=== PATIENT | male | born 1965 | race African-American/Black ===

== ENCOUNTER 2016-11-18 17:57 | Emergency (ER) | payer MEDICAID ==
[~2016-11-18] VITALS: Ht 175.3 cm; Wt 95.3 kg
[~2016-11-18 17:57] MED LIST: MAGN400T23 PO; METO25TA5 PO; MIRT15TA PO; NAP500T PO; NOR5T PO; OMEP20CA5 PO
[2016-11-18 19:16] LABS: Basophils # (auto) 0.1 uL; Basophils % (auto) 0.7 % (0.0-2.0); DEFINITIVE VIEW TRANSMISSION; Eosinophils # (auto) 0.8 uL; Eosinophils % (auto) 9.4 % (0.0-7.0); Hematocrit 38.1 % (41.0-53.0); Hemoglobin 11.9 g/dL (13.5-17.5); Lymphocytes # (auto) 2.8 uL; Lymphocytes % (auto) 32.7 % (10.0-50.0); Mean Corpuscular Hemoglobin 20.7 pg (28.0-32.0); Mean Corpuscular Hgb Conc. 31.3 g/dL (32.0-36.0); Mean Corpuscular Volume 66.1 fL (80.0-100.0); Mean Platelet Volume 8.4 fL (7.4-10.4); Monocytes # (auto) 0.5 uL; Monocytes % (auto) 6.3 % (0.0-12.0); Neutrophils # (auto) 4.3 uL; Neutrophils % (auto) 50.9 % (37.0-80.0); Platelet Count (auto) 207 10^3/uL (140-450); Red Cell Distribution Width 17.9 % (11.6-16.0); White Blood Cell 8.4 10^3/uL (4.4-10.8)
[2016-11-18 19:19] LABS: Albumin 3.9 g/dL (3.4-5.0); BUN/Creatinine Ratio 13.7; Calcium 8.5 mg/dL (8.5-10.1); Magnesium 2.3 mg/dL (1.6-2.6); Potassium 3.6 mmol/L (3.5-5.1)
[2016-11-18 19:22] LABS: Bilirubin, Total 1.6 mg/dL (0.2-1.0); Total Protein 7.5 g/dL (6.4-8.2)
[2016-11-18 20:12] LABS: Hypochromia Moderate; Platelet Estimate Adequate
[2016-11-18 20:13] LABS: Microcytosis Marked; Ovalocytes FEW; Tear Drop Cells FEW
[2016-11-19] MEDS ORDERED: LORazepam 2MG/ML-1ML VIAL IV ONE (00:30)
[2016-11-19 04:27] VITALS: BP 111/63
== END 2016-11-19 04:50 | disposition home or self-care (01) ==
LOC: EDUNIT# 17:57 → ER 18:01
DX: F41.9 Anxiety disorder, unspecified (principal); D64.9 Anemia, unspecified; I10 Essential (primary) hypertension; F12.10 Cannabis abuse, uncomplicated; Z88.0 Allergy status to penicillin; Z88.1 Allergy status to other antibiotic agents
CPT/HCPCS: 36415; 71010; 80053; 83735; 84484; 85025; 85049; 93005; 96374; 99285; J2060

== ENCOUNTER 2016-11-29 21:09 | Emergency (ER) | payer MEDICAID ==
[~2016-11-29] VITALS: Ht 172.7 cm; Wt 81.6 kg
[2016-11-30 05:18] VITALS: BP 121/70
[2016-11-30 05:27] LABS: Urine RBC None Seen /hpf (0 - 3)
[2016-11-30 05:35] LABS: Urine Bilirubin Negative (Negative); Urine Blood Negative /uL (Negative); Urine Color Yellow (Yellow); Urine Glucose Normal (Normal); Urine Ketone Negative (Negative); Urine Mucus FEW (None Seen); Urine Nitrite Negative (Negative); Urine Squamous Epithelial Cell FEW /hpf (<5); Urine Urobilinogen Normal (Negative); Urine pH 5.5 (5.0-8.0)
== END 2016-11-30 09:05 | disposition home or self-care (01) ==
LOC: EDBD 21:09 → ER 21:10
DX: J40 Bronchitis, not specified as acute or chronic (principal); F41.9 Anxiety disorder, unspecified; R07.89 Other chest pain; I10 Essential (primary) hypertension; F12.10 Cannabis abuse, uncomplicated; R10.9 Unspecified abdominal pain
CPT/HCPCS: 81001; 93005

== ENCOUNTER 2017-01-01 19:18 | Emergency (ER) | payer MEDICAID ==
[~2017-01-01] VITALS: Ht 175.3 cm; Wt 93.0 kg
[2017-01-01 20:44] LABS: Basophils # (auto) 0 uL; DEFINITIVE VIEW TRANSMISSION; Eosinophils # (auto) 0.6 uL; Eosinophils % (auto) 6.4 % (0.0-7.0); Hematocrit 36.3 % (41.0-53.0); Hemoglobin 11.6 g/dL (13.5-17.5); Lymphocytes # (auto) 2.9 uL; Mean Corpuscular Hemoglobin 21.1 pg (28.0-32.0); Mean Corpuscular Hgb Conc. 31.9 g/dL (32.0-36.0); Mean Platelet Volume 8.5 fL (7.4-10.4); Monocytes # (auto) 0.6 uL; Monocytes % (auto) 6.8 % (0.0-12.0); Neutrophils # (auto) 4.8 uL; Neutrophils % (auto) 53.8 % (37.0-80.0); Platelet Count (auto) 229 10^3/uL (140-450); Red Cell Distribution Width 17.9 % (11.6-16.0); White Blood Cell 8.9 10^3/uL (4.4-10.8)
[2017-01-01 20:51] LABS: Albumin 3.5 g/dL (3.4-5.0); Anion Gap 8 (5-15); Aspartate Aminotransferase 21 U/L (15-37); BUN/Creatinine Ratio 9.3; Blood Urea Nitrogen 11 mg/dL (7-18); Carbon Dioxide 26 mmol/L (21-32); Chloride 105 mmol/L (98-107); GFR African American 84 mL/min; GFR Non-African American 69 mL/min; Glucose 81 mg/dL (74-106); Magnesium 2.3 mg/dL (1.6-2.6); Potassium 3.5 mmol/L (3.5-5.1); Sodium 139 mmol/L (136-145)
[2017-01-01 20:55] LABS: Alkaline Phosphatase 53 U/L (45-117); Total Protein 7.1 g/dL (6.4-8.2)
[2017-01-01 23:54] LABS: Urine Bilirubin Negative (Negative); Urine Blood Negative /uL (Negative); Urine Color Yellow (Yellow); Urine Glucose Normal (Normal); Urine Ketone Negative (Negative); Urine Mucus FEW (None Seen); Urine Nitrite Negative (Negative); Urine RBC 2 /hpf (0 - 3); Urine pH 6.5 (5.0-8.0)
[2017-01-02 01:52] VITALS: BP 107/63
== END 2017-01-02 02:25 | disposition home or self-care (01) ==
LOC: EDUNIT# 19:18 → ER 19:26
DX: F41.9 Anxiety disorder, unspecified (principal); R07.9 Chest pain, unspecified; F12.10 Cannabis abuse, uncomplicated; R10.84 Generalized abdominal pain; I10 Essential (primary) hypertension; Z88.0 Allergy status to penicillin; Z88.1 Allergy status to other antibiotic agents; Z79.899 Other long term (current) drug therapy
CPT/HCPCS: 36415; 71020; 74176; 80053; 81001; 83735; 84484; 85025; 93005; 99285; G0434

== ENCOUNTER 2017-03-17 17:01 | Emergency (ER) | payer MEDICAID ==
[~2017-03-17] VITALS: Ht 175.3 cm; Wt 90.7 kg
[2017-03-17 17:12] VITALS: BP 119/75
[2017-03-17 17:40] LABS: Basophils # (auto) 0.1 uL; Basophils % (auto) 1.3 % (0.0-2.0); DEFINITIVE VIEW TRANSMISSION; Eosinophils # (auto) 0.2 uL; Eosinophils % (auto) 3.2 % (0.0-7.0); Hematocrit 36.5 % (41.0-53.0); Hemoglobin 11.6 g/dL (13.5-17.5); Lymphocytes # (auto) 2.5 uL; Lymphocytes % (auto) 35.5 % (10.0-50.0); Mean Corpuscular Hgb Conc. 31.8 g/dL (32.0-36.0); Mean Corpuscular Volume 66.1 fL (80.0-100.0); Mean Platelet Volume 8.2 fL (7.4-10.4); Monocytes # (auto) 0.5 uL; Monocytes % (auto) 7.2 % (0.0-12.0); Neutrophils # (auto) 3.7 uL; Neutrophils % (auto) 52.8 % (37.0-80.0); Platelet Count (auto) 227 10^3/uL (140-450); Red Cell Distribution Width 18.1 % (11.6-16.0)
[2017-03-17 18:09] LABS: Albumin 3.9 g/dL (3.4-5.0); Alkaline Phosphatase 55 U/L (45-117); Anion Gap 8 (5-15); Aspartate Aminotransferase 29 U/L (15-37); BUN/Creatinine Ratio 10.1; Bilirubin, Total 1.2 mg/dL (0.2-1.0); Blood Urea Nitrogen 12 mg/dL (7-18); Calcium 8.7 mg/dL (8.5-10.1); Carbon Dioxide 27 mmol/L (21-32); Chloride 104 mmol/L (98-107); GFR African American 83 mL/min; GFR Non-African American 69 mL/min; Glucose 97 mg/dL (74-106); Magnesium 2.3 mg/dL (1.6-2.6); Potassium 3.5 mmol/L (3.5-5.1); Sodium 139 mmol/L (136-145); Total Protein 7.4 g/dL (6.4-8.2)
== END 2017-03-17 20:22 | disposition left against medical advice (07) ==
LOC: ER 17:04
DX: R07.9 Chest pain, unspecified (principal); Z53.21 Procedure and treatment not carried out due to patient leaving prior to being seen by health care provider
CPT/HCPCS: 36415; 80053; 83735; 84484; 85025; 93005

== ENCOUNTER 2017-06-13 19:30 | Emergency (ER) | payer MEDICAID ==
[~2017-06-13] VITALS: Ht 175.3 cm; Wt 93.9 kg
[~2017-06-13 19:30] MED LIST changes: +HYDR-4663 PO; -NOR5T PO; -OMEP20CA5 PO; +OMEP20CA74 PO
[2017-06-13 19:43] VITALS: BP 134/78
[2017-06-13 20:09] LABS: Basophils # (auto) 0 uL; Basophils % (auto) 0.1 % (0.0-2.0); CONDITION Y; DEFINITIVE SEE PRINTOUT; Eosinophils # (auto) 0.5 uL; Eosinophils % (auto) 5.6 % (0.0-7.0); Lymphocytes % (auto) 35.6 % (10.0-50.0); Mean Corpuscular Hemoglobin 20.9 pg (28.0-32.0); Mean Corpuscular Hgb Conc. 31.6 g/dL (32.0-36.0); Mean Corpuscular Volume 66.2 fL (80.0-100.0); Mean Platelet Volume 8.6 fL (7.4-10.4); Monocytes # (auto) 0.5 uL; Monocytes % (auto) 6.4 % (0.0-12.0); Neutrophils # (auto) 4.4 uL; Neutrophils % (auto) 52.3 % (37.0-80.0); Platelet Count (auto) 227 10^3/uL (140-450); Red Cell Distribution Width 18.4 % (11.6-16.0); White Blood Cell 8.4 10^3/uL (4.4-10.8)
[2017-06-13 20:29] LABS: Albumin 3.8 g/dL (3.4-5.0); Anion Gap 8 (5-15); Blood Urea Nitrogen 12 mg/dL (7-18); Calcium 8.1 mg/dL (8.5-10.1); Carbon Dioxide 26 mmol/L (21-32); Chloride 107 mmol/L (98-107); Glucose 100 mg/dL (74-106); Potassium 3.6 mmol/L (3.5-5.1); Sodium 141 mmol/L (136-145)
[2017-06-13 20:31] LABS: Aspartate Aminotransferase 30 U/L (15-37); BUN/Creatinine Ratio 12.8; GFR African American 109 mL/min; GFR Non-African American 90 mL/min
[2017-06-13 20:36] LABS: Alkaline Phosphatase 55 U/L (45-117); Bilirubin, Total 0.8 mg/dL (0.2-1.0); INR 0.92 (0.9-1.15); Partial Thromboplastin Time 26.1 sec (22.64-33.71); Total Protein 7.3 g/dL (6.4-8.2)
[2017-06-13 21:04] LABS: B-Type Natriuretic Peptide 6.8 pg/mL (0-100); Temperature: 22.3 C (20.0-25.0)
== END 2017-06-13 22:44 | disposition left against medical advice (07) ==
LOC: EDUNIT# 19:36 → ER 19:36
DX: R07.9 Chest pain, unspecified (principal); R10.9 Unspecified abdominal pain; Z53.21 Procedure and treatment not carried out due to patient leaving prior to being seen by health care provider
CPT/HCPCS: 36415; 71010; 80053; 83880; 84443; 84484; 85025; 85610; 85730; 93005

== ENCOUNTER 2017-06-14 17:04 | Emergency (ER) | payer MEDICAID ==
[~2017-06-14] VITALS: Ht 175.3 cm; Wt 93.9 kg
[2017-06-14] MEDS ORDERED: HYDROmorphone HCL 2 MG/ML VL IV ONE (23:15)
[2017-06-14] MEDS ORDERED: ALUM & MAG HYDROX-SIMETH LIQ(MAALOX) 30 ML PO ONE (23:15)
[2017-06-14] MEDS ORDERED: ONDANSETRON HCL 4 MG/2 ML VIAL IV ONE (23:15)
[2017-06-14] MEDS ORDERED: LIDOCAINE VISCOUS 2% 15ML UD PO ONE (23:15)
[2017-06-14 23:23] LABS: DEFINITIVE SEE PRINTOUT; Hematocrit 40.7 % (41.0-53.0); Hemoglobin 12.4 g/dL (13.5-17.5); Mean Corpuscular Hemoglobin 20.4 pg (28.0-32.0); Mean Corpuscular Hgb Conc. 30.3 g/dL (32.0-36.0); Mean Corpuscular Volume 67.3 fL (80.0-100.0); Mean Platelet Volume 8.9 fL (7.4-10.4); Platelet Count (auto) 239 10^3/uL (140-450); SUSPECT SEE PRINTOUT; White Blood Cell 8.9 10^3/uL (4.4-10.8)
[2017-06-14 23:30] LABS: Metamyelocytes % 0; Myelocytes % 0; Promyelocytes % 0; Reactive Lymphocytes 0
[2017-06-14 23:41] LABS: INR 0.92 (0.9-1.15); Partial Thromboplastin Time 26.2 sec (22.64-33.71)
[2017-06-14 23:47] LABS: Amylase 176 U/L (25-115); Anion Gap 6 (5-15); Blood Urea Nitrogen 11 mg/dL (7-18); Calcium 8.6 mg/dL (8.5-10.1); Carbon Dioxide 28 mmol/L (21-32); Chloride 105 mmol/L (98-107); Glucose 86 mg/dL (74-106); Magnesium 2.7 mg/dL (1.6-2.6); Sodium 139 mmol/L (136-145)
[2017-06-14 23:49] LABS: Aspartate Aminotransferase 28 U/L (15-37); BUN/Creatinine Ratio 11.1; GFR African American 102 mL/min; GFR Non-African American 85 mL/min
[2017-06-14 23:54] LABS: Alkaline Phosphatase 56 U/L (45-117); Total Protein 7.8 g/dL (6.4-8.2)
[2017-06-15 01:00] LABS: Anisocytosis Marked; Hypersegmented Neutrophils Present; Microcytosis Marked; Platelet Estimate Adequate
[2017-06-15 01:01] LABS: Hypochromia Moderate; Ovalocytes FEW
[2017-06-15 01:35] VITALS: BP 118/66
== END 2017-06-15 05:32 | disposition home or self-care (01) ==
LOC: ER 17:21
DX: K21.9 Gastro-esophageal reflux disease without esophagitis (principal); I10 Essential (primary) hypertension
CPT/HCPCS: 36415; 74176; 76705; 80053; 82150; 83690; 83735; 84484; 85007; 85027; 85610; 85730; 93005; 94761; 99285; J1170; J2405

== ENCOUNTER 2017-06-19 20:57 | Emergency (ER) | payer MEDICAID ==
[~2017-06-19] VITALS: Ht 175.3 cm; Wt 91.2 kg
[2017-06-19 21:28] VITALS: BP 133/79
[2017-06-19 22:15] LABS: Basophils # (auto) 0 uL; Basophils % (auto) 0.3 % (0.0-2.0); CONDITION Y; DEFINITIVE SEE PRINTOUT; Eosinophils # (auto) 0.3 uL; Eosinophils % (auto) 3.3 % (0.0-7.0); Hematocrit 40.3 % (41.0-53.0); Hemoglobin 12.6 g/dL (13.5-17.5); Lymphocytes # (auto) 3.3 uL; Lymphocytes % (auto) 41.6 % (10.0-50.0); Mean Corpuscular Hemoglobin 20.9 pg (28.0-32.0); Mean Corpuscular Hgb Conc. 31.4 g/dL (32.0-36.0); Mean Corpuscular Volume 66.5 fL (80.0-100.0); Mean Platelet Volume 9.5 fL (7.4-10.4); Monocytes # (auto) 0.6 uL; Monocytes % (auto) 7.6 % (0.0-12.0); Neutrophils # (auto) 3.7 uL; Neutrophils % (auto) 47.2 % (37.0-80.0); Platelet Count (auto) 289 10^3/uL (140-450); Red Cell Distribution Width 18.5 % (11.6-16.0); White Blood Cell 7.9 10^3/uL (4.4-10.8)
[2017-06-19 22:39] LABS: Alkaline Phosphatase 59 U/L (45-117); Anion Gap 7 (5-15); Aspartate Aminotransferase 21 U/L (15-37); BUN/Creatinine Ratio 14.3; Bilirubin, Total 1.3 mg/dL (0.2-1.0); Blood Urea Nitrogen 14 mg/dL (7-18); Calcium 8.7 mg/dL (8.5-10.1); Carbon Dioxide 27 mmol/L (21-32); Chloride 103 mmol/L (98-107); GFR African American 104 mL/min; GFR Non-African American 86 mL/min; Glucose 91 mg/dL (74-106); Sodium 137 mmol/L (136-145)
[2017-06-20 05:40] LABS: Urine Bilirubin Negative (Negative); Urine Blood Negative /uL (Negative); Urine Color Yellow (Yellow); Urine Glucose Normal (Normal); Urine Ketone Negative (Negative); Urine Mucus FEW (None Seen); Urine Nitrite Negative (Negative); Urine RBC 2 /hpf (0 - 3); Urine Squamous Epithelial Cell FEW /hpf (<5); Urine Urobilinogen Normal (Negative)
== END 2017-06-20 05:18 | disposition left against medical advice (07) ==
LOC: EDUNIT# 20:58 → ER 20:58
DX: R10.9 Unspecified abdominal pain (principal); Z53.21 Procedure and treatment not carried out due to patient leaving prior to being seen by health care provider
CPT/HCPCS: 36415; 80053; 81001; 84484; 85025

== ENCOUNTER 2018-07-27 20:25 | Emergency (ER) | payer MEDICAID ==
[~2018-07-27] VITALS: Ht 182.9 cm; Wt 90.7 kg
[~2018-07-27 20:25] MED LIST changes: -HYDR-4663 PO; +HYDR-4683 PO
[2018-07-27 20:55] VITALS: BP 118/72
[2018-07-27 21:25] LABS: Basophils # (auto) 0 uL; Eosinophils # (auto) 0.5 uL; Hematocrit 37.6 % (41.0-53.0); Monocytes # (auto) 0.6 uL; Neutrophils # (auto) 3.8 uL
[2018-07-27 21:27] LABS: Basophils % (auto) 0.4 % (0.0-2.0); Eosinophils % (auto) 6.9 % (0.0-7.0); Hemoglobin 12.1 g/dL (13.5-17.5); Lymphocytes # (auto) 2.7 uL; Lymphocytes % (auto) 35.6 % (10.0-50.0); Mean Corpuscular Hemoglobin 21.5 pg (28.0-32.0); Mean Corpuscular Hgb Conc. 32.3 g/dL (32.0-36.0); Mean Corpuscular Volume 66.6 fL (80.0-100.0); Monocytes % (auto) 8.1 % (0.0-12.0); Nucleated Red Blood Cells % 0.5 %; Platelet Count (auto) 204 10^3/uL (140-450); Red Blood Cells 5.65 10^6/uL (4.5-5.90); Red Cell Distribution Width 17.7 % (11.8-14.3); White Blood Cell 7.7 10^3/uL (4.4-10.8)
[2018-07-27 21:40] LABS: Albumin 3.5 g/dL (3.4-5.0); Anion Gap 10 (5-15); Blood Urea Nitrogen 14 mg/dL (7-18); Calcium 7.9 mg/dL (8.5-10.1); Carbon Dioxide 23 mmol/L (21-32); Chloride 105 mmol/L (98-107); GFR African American 92 mL/min; GFR Non-African American 76 mL/min; Glucose 107 mg/dL (74-106); Magnesium 2.1 mg/dL (1.6-2.6); Potassium 3.7 mmol/L (3.5-5.1); Sodium 138 mmol/L (136-145)
[2018-07-27 21:41] LABS: INR 0.93 (0.9-1.15); Partial Thromboplastin Time 27.1 sec (23.78-33.04)
[2018-07-27 21:45] LABS: Alanine Aminotransferase 47 U/L (16-61); Alkaline Phosphatase 57 U/L (45-117); Aspartate Aminotransferase 36 U/L (15-37); Total Protein 7.3 g/dL (6.4-8.2)
== END 2018-07-28 04:12 | disposition left against medical advice (07) ==
LOC: EDBD 20:25 → ER 20:31
DX: R07.9 Chest pain, unspecified (principal); Z53.21 Procedure and treatment not carried out due to patient leaving prior to being seen by health care provider
CPT/HCPCS: 36415; 71045; 80053; 83735; 83880; 84484; 85025; 85610; 85730; 93005; 94761

== ENCOUNTER 2018-08-16 02:08 | Emergency (ER) | payer MEDICAID ==
[~2018-08-16] VITALS: Ht 175.3 cm; Wt 93.0 kg
[2018-08-16 02:58] LABS: Basophils # (auto) 0 uL; Basophils % (auto) 0.5 % (0.0-2.0); Monocytes # (auto) 0.5 uL; Monocytes % (auto) 7.7 % (0.0-12.0); Neutrophils # (auto) 2.8 uL; Red Cell Distribution Width 17.4 % (11.8-14.3)
[2018-08-16 03:00] LABS: Eosinophils # (auto) 0.5 uL; Eosinophils % (auto) 6.8 % (0.0-7.0); Lymphocytes # (auto) 3.2 uL; Lymphocytes % (auto) 45.2 % (10.0-50.0); Mean Corpuscular Hemoglobin 21.1 pg (28.0-32.0); Mean Corpuscular Hgb Conc. 31.7 g/dL (32.0-36.0); Mean Corpuscular Volume 66.6 fL (80.0-100.0); Neutrophils % (auto) 39.8 % (37.0-80.0); Nucleated Red Blood Cells % 0.6 %; Platelet Count (auto) 219 10^3/uL (140-450); Red Blood Cells 5.71 10^6/uL (4.5-5.90)
[2018-08-16 03:49] LABS: Alanine Aminotransferase 28 U/L (16-61); Albumin 3.6 g/dL (3.4-5.0); Anion Gap 12 (5-15); Aspartate Aminotransferase 22 U/L (15-37); BUN/Creatinine Ratio 11.2; Blood Urea Nitrogen 12 mg/dL (7-18); Calcium 8.1 mg/dL (8.5-10.1); Carbon Dioxide 22 mmol/L (21-32); Chloride 106 mmol/L (98-107); GFR African American 93 mL/min; GFR Non-African American 77 mL/min; Glucose 92 mg/dL (74-106); Potassium 4.1 mmol/L (3.5-5.1); Sodium 140 mmol/L (136-145)
[2018-08-16 03:55] LABS: Alkaline Phosphatase 53 U/L (45-117); Bilirubin, Total 0.8 mg/dL (0.2-1.0); Total Protein 7.2 g/dL (6.4-8.2)
[2018-08-16 05:36] LABS: Urine Bacteria NONE SEEN /hpf (None Seen); Urine Blood Negative /uL (Negative); Urine Mucus FEW (None Seen); Urine WBC 2 /hpf (0 - 3)
[2018-08-16 05:54] LABS: Alcohol, Urine < 3.0 mg/dL (0-5); Amphetamine Screen, Urine NEGATIVE (NEGATIVE); Barbiturate Scree,Urine NEGATIVE (NEGATIVE); Benzodiazephine Screen, Urine NEGATIVE (NEGATIVE); Cannabinoid Screen, Urine POSITIVE (NEGATIVE); Cocaine Screen, Urine NEGATIVE (NEGATIVE); Opiate Scree,Urine NEGATIVE (NEGATIVE); Phencyclidine Screen, Urine NEGATIVE (NEGATIVE)
[2018-08-16 06:37] VITALS: BP 113/70
[2018-08-16] MEDS ORDERED: LORazepam 0.5 MG TAB PO ONE (07:00)
== END 2018-08-16 10:33 | disposition home or self-care (01) ==
LOC: ER 02:08
DX: R07.89 Other chest pain (principal); F41.9 Anxiety disorder, unspecified; I10 Essential (primary) hypertension; F12.90 Cannabis use, unspecified, uncomplicated; Z88.1 Allergy status to other antibiotic agents; Z88.0 Allergy status to penicillin; Z79.899 Other long term (current) drug therapy
CPT/HCPCS: 36415; 71045; 80053; 80307; 81001; 84484; 85025; 93005; 94761

== ENCOUNTER 2019-11-22 04:21 | Emergency (ER) | payer SELFPAY ==
[~2019-11-22] VITALS: Ht 177.8 cm; Wt 105.2 kg
[~2019-11-22 04:21] MED LIST changes: -HYDR-4683 PO; +HYDR-4833 PO
[2019-11-22] MEDS ORDERED: ASPirin-EC 325mg tab PO ONE (04:45)
[2019-11-22] MEDS ORDERED: LORazepam 0.5 MG TAB PO ONE (04:45)
[2019-11-22 05:46] LABS: Basophils # (auto) 0 uL; Basophils % (auto) 0.6 % (0.0-2.0); Eosinophils # (auto) 0.5 uL; Hematocrit 37.4 % (41.0-53.0); Hemoglobin 12.3 g/dL (13.5-17.5); Lymphocytes # (auto) 3.1 uL; Lymphocytes % (auto) 47.1 % (10.0-50.0); Mean Corpuscular Hemoglobin 21.7 pg (28.0-32.0); Mean Corpuscular Hgb Conc. 32.8 g/dL (32.0-36.0); Mean Corpuscular Volume 66.2 fL (80.0-100.0); Monocytes # (auto) 0.6 uL; Monocytes % (auto) 8.8 % (0.0-12.0); Neutrophils # (auto) 2.4 uL; Neutrophils % (auto) 36.5 % (37.0-80.0); Nucleated Red Blood Cells % 0.7 %; Platelet Count (auto) 186 10^3/uL (140-450); Red Blood Cells 5.65 10^6/uL (4.5-5.90); Red Cell Distribution Width 17.5 % (11.8-14.3); White Blood Cell 6.7 10^3/uL (4.4-10.8)
[2019-11-22 05:56] LABS: INR 1.01 (0.9-1.15); Partial Thromboplastin Time 26.9 sec (23.64-32.05)
[2019-11-22 06:01] LABS: Calcium 8.5 mg/dL (8.5-10.1); Chloride 107 mmol/L (98-107); Potassium 3.8 mmol/L (3.5-5.1); Sodium 139 mmol/L (136-145)
[2019-11-22 06:09] LABS: Alanine Aminotransferase 34 U/L (16-61); Albumin 3.6 g/dL (3.4-5.0); Alkaline Phosphatase 55 U/L (45-117); Anion Gap 7 (5-15); Aspartate Aminotransferase 31 U/L (15-37); BUN/Creatinine Ratio 13.8; Bilirubin, Total 1.2 mg/dL (0.2-1.0); Blood Urea Nitrogen 13 mg/dL (7-18); Carbon Dioxide 25 mmol/L (21-32); GFR African American 108 mL/min; GFR Non-African American 89 mL/min; Glucose 88 mg/dL (74-106); Total Protein 7.2 g/dL (6.4-8.2)
[2019-11-22 06:34] VITALS: BP 121/77
== END 2019-11-22 06:40 | disposition home or self-care (01) ==
LOC: ER 04:21 → EDBD 04:21 → ER 06:40
DX: R07.89 Other chest pain (principal); F12.10 Cannabis abuse, uncomplicated; Z88.0 Allergy status to penicillin; Z88.1 Allergy status to other antibiotic agents
CPT/HCPCS: 36415; 71045; 80053; 83880; 84484; 85025; 85610; 85730; 93005

== ENCOUNTER 2023-06-18 22:05 | Emergency (ER) | payer MEDICAID ==
[~2023-06-18] VITALS: Ht 180.3 cm; Wt 118.0 kg
[~2023-06-18 22:05] MED LIST changes: +MIRT-93 PO; -MIRT15TA PO
[2023-06-18 23:00] VITALS: PULSE 60; RESP 13; O2SAT 96
[2023-06-18 23:12] LABS: Eosinophils # (auto) 0.4 10 ^3/uL (0-0.8); Hemoglobin 11.4 g/dL (13.5-17.5); Monocytes # (auto) 0.4 10 ^3/uL (0-1.3); Neutrophils # (auto) 3.7 10 ^3/uL (1.6-8.6); Nucleated Red Blood Cells % 0.2 %
[2023-06-18 23:13] LABS: Basophils # (auto) 0 10 ^3/uL (0-0.2); Basophils % (auto) 0.6 % (0.0-2.0); Eosinophils % (auto) 5.3 % (0.0-7.0); Hematocrit 35.5 % (41.0-53.0); Lymphocytes # (auto) 2.8 10 ^3/uL (0.4-5.4); Mean Corpuscular Hemoglobin 20.9 pg (28.0-32.0); Mean Corpuscular Hgb Conc. 32.1 g/dL (32.0-36.0); Mean Corpuscular Volume 65.2 fL (80.0-100.0); Neutrophils % (auto) 50.1 % (37.0-80.0); Red Blood Cells 5.43 10^6/uL (4.5-5.90); Red Cell Distribution Width 17.2 % (11.8-14.3); White Blood Cell 7.4 10^3/uL (4.4-10.8)
[2023-06-18 23:34] LABS: Albumin 3.7 g/dL (3.4-5.0); Calcium 8.2 mg/dL (8.5-10.1); Magnesium 2.5 mg/dL (1.6-2.6); Potassium 3.6 mmol/L (3.5-5.1)
[2023-06-18 23:38] LABS: BUN/Creatinine Ratio 10.1 (10.0-20.0); Bilirubin, Total 0.8 mg/dL (0.2-1.0); Total Protein 7.1 g/dL (6.4-8.2)
[2023-06-19 07:29] VITALS: PULSE 70; RESP 15; O2SAT 97
[2023-06-19 09:03] VITALS: BP 138/86; PULSE 69; RESP 17; TEMP 98.2; O2SAT 96
== END 2023-06-19 09:04 | disposition home or self-care (01) ==
LOC: EDBD 22:05 → ER 22:05
DX: R42 Dizziness and giddiness (principal); F45.21 Hypochondriasis; F15.90 Other stimulant use, unspecified, uncomplicated; Z79.899 Other long term (current) drug therapy
CPT/HCPCS: 36415; 70450; 71045; 80053; 83735; 83880; 84484; 85025; 93005

== ENCOUNTER 2023-10-04 11:31 | Emergency (ER) | payer MEDICAID ==
[~2023-10-04] VITALS: Ht 175.3 cm; Wt 107.0 kg
[2023-10-04 12:53] LABS: Basophils # (auto) 0 10 ^3/uL (0-0.2); Basophils % (auto) 0.2 % (0.0-2.0); Eosinophils # (auto) 0.5 10 ^3/uL (0-0.8); Hemoglobin 12.3 g/dL (13.5-17.5); Monocytes # (auto) 0.7 10 ^3/uL (0-1.3); Nucleated Red Blood Cells % 0.3 %
[2023-10-04] MEDS ORDERED: IOHEXOL 350 MG/ML 100ML IJ ONE (12:54)
[2023-10-04 12:55] LABS: Eosinophils % (auto) 5.7 % (0.0-7.0); Hematocrit 38.6 % (41.0-53.0); Lymphocytes # (auto) 3.4 10 ^3/uL (0.4-5.4); Lymphocytes % (auto) 39.9 % (10.0-50.0); Mean Corpuscular Hemoglobin 20.9 pg (28.0-32.0); Mean Corpuscular Hgb Conc. 31.9 g/dL (32.0-36.0); Mean Corpuscular Volume 65.5 fL (80.0-100.0); Monocytes % (auto) 7.8 % (0.0-12.0); Neutrophils % (auto) 46.4 % (37.0-80.0); Red Blood Cells 5.89 10^6/uL (4.5-5.90); Red Cell Distribution Width 17.4 % (11.8-14.3); White Blood Cell 8.6 10^3/uL (4.4-10.8)
[2023-10-04 13:05] LABS: Chloride 105 mmol/L (98-107); Potassium 3.9 mmol/L (3.5-5.1); Sodium 139 mmol/L (136-145)
[2023-10-04 13:06] LABS: Anion Gap 5 (5-15); Carbon Dioxide 29 mmol/L (20-30)
[2023-10-04 13:07] LABS: Calcium 9.4 mg/dL (8.5-10.1); INR 0.96 (0.9-1.15); Prothrombin Time 10.1 sec (9.3-11.8)
[2023-10-04 13:11] LABS: Glucose 80 mg/dL (74-106)
[2023-10-04 13:12] LABS: BUN/Creatinine Ratio 10.4 (10.0-20.0); Blood Urea Nitrogen 11 mg/dL (9-23)
[2023-10-04] MEDS ORDERED: DIPH25CA51 PO (13:57)
[2023-10-04] MEDS ORDERED: PROC10TA6 PO (13:57)
[2023-10-04 14:09] VITALS: BP 138/76; PULSE 76; RESP 16; TEMP 97.6; O2SAT 98
== END 2023-10-04 14:12 | disposition home or self-care (01) ==
LOC: ER 11:31
DX: R51.9 Headache, unspecified (principal)
CPT/HCPCS: 36415; 70496; 80048; 82962; 85025; 85610; 99285; Q9967

== ENCOUNTER 2024-02-16 09:28 | Emergency (ER) | payer MEDICAID ==
[~2024-02-16] VITALS: Ht 175.3 cm; Wt 110.0 kg
[~2024-02-16 09:28] MED LIST changes: +DIPH25CA51 PO; +PROC10TA6 PO
[2024-02-16 09:35] VITALS: BP 139/85; RESP 20; O2SAT 100
[2024-02-16 10:03] VITALS: PULSE 70
[2024-02-16] MEDS: SODIUM CHLORIDE 0.9% 1,000 ML IV ONE (10:19)
[2024-02-16 10:31] LABS: Basophils # (auto) 0 10 ^3/uL (0-0.2); Basophils % (auto) 0.6 % (0.0-2.0); Eosinophils # (auto) 0.4 10 ^3/uL (0-0.8); Hematocrit 37.6 % (41.0-53.0); Hemoglobin 11.9 g/dL (13.5-17.5); Lymphocytes # (auto) 2.2 10 ^3/uL (0.4-5.4); Lymphocytes % (auto) 41.1 % (10.0-50.0); Mean Corpuscular Hemoglobin 20.7 pg (28.0-32.0); Mean Corpuscular Hgb Conc. 31.7 g/dL (32.0-36.0); Mean Corpuscular Volume 65.3 fL (80.0-100.0); Monocytes # (auto) 0.4 10 ^3/uL (0-1.3); Monocytes % (auto) 7.9 % (0.0-12.0); Neutrophils # (auto) 2.3 10 ^3/uL (1.6-8.6); Neutrophils % (auto) 43.4 % (37.0-80.0); Nucleated Red Blood Cells % 0.3 %; Red Blood Cells 5.76 10^6/uL (4.5-5.90); Red Cell Distribution Width 17.5 % (11.8-14.3); White Blood Cell 5.4 10^3/uL (4.4-10.8)
[2024-02-16 10:34] LABS: Chloride 108 mmol/L (98-107); Potassium 3.9 mmol/L (3.5-5.1); Sodium 139 mmol/L (136-145)
[2024-02-16 10:35] LABS: Anion Gap 4 (5-15); Carbon Dioxide 27 mmol/L (20-30)
[2024-02-16 10:36] LABS: Calcium 9.1 mg/dL (8.5-10.1)
[2024-02-16 10:40] LABS: BUN/Creatinine Ratio 9.3 (10.0-20.0); Blood Urea Nitrogen 9 mg/dL (9-23); Glucose 89 mg/dL (74-106)
[2024-02-16 10:41] LABS: Blood Alcohol < 3.0 mg/dL (<10)
[2024-02-16 11:48] LABS: Amphetamine Screen, Urine Neg (NEGATIVE); Barbiturate Scree,Urine Neg (NEGATIVE)
[2024-02-16 11:50] LABS: Benzodiazephine Screen, Urine Neg (NEGATIVE); Cannabinoid Screen, Urine Pos (NEGATIVE); Cocaine Screen, Urine Neg (NEGATIVE); Opiate Scree,Urine Neg (NEGATIVE); Phencyclidine Screen, Urine Neg (NEGATIVE)
[2024-02-16] MEDS ORDERED: MORPHINE SULFATE INJ 2 MG/ml SYRG IV PRN (13:00)
[2024-02-16] MEDS ORDERED: ONDANSETRON HCL 4 MG/2 ML VIAL IV PRN (13:00)
[2024-02-16] MEDS ORDERED: SODIUM CHLORIDE 0.9% 1,000 ML IV SCH (13:00)
[2024-02-16] MEDS ORDERED: DOCUSATE SOD 100 MG CAP PO PRN (13:00)
[2024-02-16 13:53] LABS: Hypochromia Moderate; Platelet Estimate Adequate
[2024-02-16] MEDS ORDERED: METOPROLOL TARTRATE 25 MG TAB PO SCH (22:00)
[2024-02-17] MEDS ORDERED: PANTOPRAZOLE 40 MG TAB PO SCH (10:00)
== END 2024-02-16 13:01 | disposition left against medical advice (07) ==
LOC: ER 09:28 → EDBD 09:28 → ER 13:01
DX: R55 Syncope and collapse (principal); G92.9 Unspecified toxic encephalopathy; F12.10 Cannabis abuse, uncomplicated; F41.9 Anxiety disorder, unspecified; Z88.1 Allergy status to other antibiotic agents; Z88.0 Allergy status to penicillin
CPT/HCPCS: 36415; 70450; 80048; 80307; 80320; 84484; 85025; 93005; 96360; 99284; J7030; 96361